=== PATIENT | male | born 1985 | race Caucasian/White ===

== ENCOUNTER 2021-06-01 16:59 | Inpatient (IN) | payer OTHER ==
[~2021-06-01] VITALS: Ht 170.2 cm; Wt 68.0 kg
[~2021-06-01 16:59] MED LIST: CIPRODEX OTIC7.5 ML AD
[2021-06-01 21:00] LABS: BASOPHIL 0 % (0-2); EOSINOPHIL 0 % (0-5); HCT 40.6 % (42.0-52.0); HGB 13.7 g/dl (13.2-18.0); LYMPHOCYTE 30.6 % (15-48); MCH 30.7 pg (25.0-31.0); MCHC 33.7 g/dL (32.0-36.0); NEUTROPHIL 60.5 % (41-80); NRBC 0; PLT 134 K/uL (150-400); RBC 4.46 M/uL (4.70-6.00); RDW 11.7 % (11.5-14.0); WBC 3.3 K/uL (4.0-10.5)
[2021-06-01 21:11] LABS: ALBUMIN 3.4 g/dL (3.4-5.0); BILIRUBIN - TOTAL 0.4 mg/dL (0.2-1.0); BUN/CREAT RATIO (CALC) 15.2 RATIO; CREATININE 2.1 mg/dL (0.67-1.17); GLOBULIN (CALCULATION) 3.6 g/dL; POTASSIUM 4.2 mmol/L (3.5-5.1)
[2021-06-01 21:15] LABS: LACTIC ACID 2.7 mmol/L (0.4-1.9)
[2021-06-01 21:31] LABS: INFLUENZA A NAA NEGATIVE (NEGATIVE)
[2021-06-01 21:47] LABS: CORONAVIRUS 2019 SARS-COV-2 POSITIVE (NEGATIVE)
[2021-06-02 12:36] LABS: HCT 35.8 % (42.0-52.0); HGB 12.1 g/dl (13.2-18.0); MCH 30.9 pg (25.0-31.0); MCHC 33.8 g/dL (32.0-36.0); MCV 91.3 fL (78.0-100.0); RBC 3.92 M/uL (4.70-6.00); RDW 11.8 % (11.5-14.0); WBC 2.9 K/uL (4.0-10.5)
[2021-06-02 13:42] LABS: BUN/CREAT RATIO (CALC) 17.2 RATIO; CREATININE 1.34 mg/dL (0.67-1.17); MAGNESIUM 2.3 mg/dL (1.8-2.4); PHOSPHORUS 3.2 mg/dL (2.6-4.7)
[2021-06-04 06:31] LABS: HCT 38.8 % (42.0-52.0); MCH 30.5 pg (25.0-31.0); MCHC 33.5 g/dL (32.0-36.0); MCV 91.1 fL (78.0-100.0); MPV 9.8 fL (6.0-9.5); RBC 4.26 M/uL (4.70-6.00); RDW 11.9 % (11.5-14.0)
[2021-06-04 06:32] LABS: WBC 7.1 K/uL (4.0-10.5)
[2021-06-04 06:49] LABS: BUN/CREAT RATIO (CALC) 19.3 RATIO; CREATININE 1.09 mg/dL (0.67-1.17); POTASSIUM 4.1 mmol/L (3.5-5.1)
[2021-06-05] MEDS ORDERED: DECADRON6 MG PO (14:24)
[2021-06-05] MEDS ORDERED: VENTOLIN HFA IN18 GM INH (14:24)
--- NOTE | 2021-06-05 15:55 | NUR ---
PATIENT LEFT WITHOUT DISCHARGE PAPERS, AND HOME OXYGEN. ELOPED FROM ROOM. IV HAD BEEN REMOVED. WAS ABLE TO CONTACT PATIENT, AND INSTRUCTED HIM TO USE OXYGEN PRN AT 2L NC, AND VERBALLY WENT OVER DISCHARGE PAPER WORK. PATIENT VERBALIZED UNDERSTANDING. INSTRUCTED PATIENT TO RETURN TO THE ER FOR ANY SOB, CHEST PAIN, DIZZINESS, FEVER, OR OTHER WORSENING SYMPTOMS.
== END 2021-06-05 15:00 | disposition home or self-care (01) | DRG 177 ==
LOC: FER 16:59 → FMS 06-03 12:19
PROVIDERS: Emergency Medicine; Nurse Practitioner Family; ADMIT Hospitalist
PROC: 8E0ZXY6 Isolation (ICD-10-PCS; principal; 2021-06-03)
PROC: XW033E5 Introduction of Remdesivir Anti-infective into Peripheral Vein, Percutaneous Approach, New Technology Group 5 (ICD-10-PCS; 2021-06-03)
DX: U07.1 COVID-19 (principal); J12.82 Pneumonia due to coronavirus disease 2019; J96.01 Acute respiratory failure with hypoxia; N17.9 Acute kidney failure, unspecified; Z88.2 Allergy status to sulfonamides
CPT/HCPCS: 36415; 36600; 71045; 71250; 80048; 80053; 82803; 83605; 83735; 84100; 84145; 85025; 85379; 87040; 93005; 94010; 94640; 94664; 94760; 96372; C9399; J0456; J1100; J1650; J1885; J2060; J2405; J2550; J7030; J7050; Q0169; U0002

== ENCOUNTER 2021-06-19 16:38 | Inpatient (IN) | payer OTHER ==
[~2021-06-19] VITALS: Ht 177.8 cm; Wt 60.0 kg
[~2021-06-19 16:38] MED LIST changes: +DECADRON6 MG PO; +VENTOLIN HFA IN18 GM INH
[2021-06-19 18:09] LABS: BASOPHIL 0.1 % (0-2); EOSINOPHIL 0 % (0-5); HCT 35.4 % (42.0-52.0); HGB 11.8 g/dl (13.2-18.0); LYMPHOCYTE 4.1 % (15-48); MCH 30.9 pg (25.0-31.0); MCHC 33.3 g/dL (32.0-36.0); MCV 92.7 fL (78.0-100.0); MONOCYTE 2.9 % (0-12); MPV 10.4 fL (6.0-9.5); NRBC 0; PLT 274 K/uL (150-400); RBC 3.82 M/uL (4.70-6.00); RDW 13.5 % (11.5-14.0); WBC 14.4 K/uL (4.0-10.5)
[2021-06-19 18:12] LABS: ALBUMIN 2.4 g/dL (3.4-5.0); BILIRUBIN - TOTAL 1.3 mg/dL (0.2-1.0); BUN/CREAT RATIO (CALC) 17.6 RATIO; CREATININE 1.19 mg/dL (0.67-1.17); GLOBULIN (CALCULATION) 5.2 g/dL; TOTAL PROTEIN 7.6 g/dL (6.4-8.2)
[2021-06-19 18:18] LABS: NEUTROPHIL 92.4 % (41-80)
[2021-06-19 19:05] LABS: LACTIC ACID 1.4 mmol/L (0.4-1.9)
--- NOTE | 2021-06-20 10:39 | NUR ---
OK TO USE CENTRAL LINE PT PRONED AT 1020
[2021-06-20 12:34] LABS: BUN/CREAT RATIO (CALC) 26.4 RATIO; CREATININE 1.21 mg/dL (0.67-1.17); POTASSIUM 3.8 mmol/L (3.5-5.1)
[2021-06-20 21:25] LABS: CREATININE 1.28 mg/dL (0.67-1.17); POTASSIUM 3.7 mmol/L (3.5-5.1)
[2021-06-21 06:00] LABS: BASOPHIL 0.1 % (0-2); EOSINOPHIL 0 % (0-5); HCT 26.3 % (42.0-52.0); HGB 8.4 g/dl (13.2-18.0); LYMPHOCYTE 11.4 % (15-48); MCH 30.7 pg (25.0-31.0); MCHC 31.9 g/dL (32.0-36.0); MONOCYTE 4.7 % (0-12); MPV 9.9 fL (6.0-9.5); NEUTROPHIL 83.2 % (41-80); NRBC 0; PLT 164 K/uL (150-400); RBC 2.74 M/uL (4.70-6.00); RDW 13.8 % (11.5-14.0); WBC 7.9 K/uL (4.0-10.5)
[2021-06-21 07:42] LABS: BUN/CREAT RATIO (CALC) 30.7 RATIO; CREATININE 1.14 mg/dL (0.67-1.17); POTASSIUM 4.4 mmol/L (3.5-5.1)
--- NOTE | 2021-06-21 15:13 | NUR ---
1000- PT TURN TO SUPINE POSITION. RT LISSY AT BEDSIDE, AT DOOR. PT TOLERATED WELL. O2 SAT REMAINS STABLE . 1110-TAKEN TO CT BY KEON Knapp RN AND CHRISSIE ORTIZ.
--- NOTE | 2021-06-22 03:20 | NUR ---
LATE ENTRY. 0130 PATIENT BECAME VERY RESTLESS AND AGITATED. MD Meenu URIOSTEGUI NOTIFIED DIPROVAN INCREASED TO 40 MCG/KG/MIN AND FENTANYL INCREASED TO 200MCG/HR, ATIVAN GIVEN AT 0145, VERSED 5MG PUSH GIVEN AT 0200, PATIENT STILL VERY AGITATED, MD NOTIFIED AGAIN AND INSTRUCTED TO INCREASE DIPROVAN AND FENTANYL TO MAX. AT 0210 VERSED DRIP STARTED AT 2MG/HR. TUBE FEED STOPPED, ORDER FOR KUB AND CHEST XRAY FOR LINE VERIFICATION. PENDING RESULTS. PATIENT RESTING WELL AT THIS TIME. WILL CONT TO MONITIOR. VERSED INCREASES TO 3MG/HR AT 0300
[2021-06-22 05:27] LABS: BUN/CREAT RATIO (CALC) 41.2 RATIO; CREATININE 0.97 mg/dL (0.67-1.17); POTASSIUM 4.9 mmol/L (3.5-5.1)
[2021-06-22 22:26] LABS: BILIRUBIN NEGATIVE (NEGATIVE); BLOOD TRACE-INTACT Ery/uL (NEGATIVE); CLARITY CLEAR (CLEAR); COLOR YELLOW (YELLOW); GLUCOSE (U) NORMAL (NORMAL); LEUKOCYTES NEGATIVE Leu/uL (NEGATIVE); NITRITE NEGATIVE (NEGATIVE); PROTEIN NEGATIVE (NEGATIVE); SPECIFIC GRAVITY 1.025 (1.001-1.030); UROBILINOGEN 0.2 mg/dL (0.2-1.0); pH 6.5 (5.0-9.0)
[2021-06-22 22:32] LABS: URINARY WBC RARE
[2021-06-23 04:57] LABS: BASOPHIL 0.2 % (0-2); EOSINOPHIL 0 % (0-5); HCT 33.1 % (42.0-52.0); HGB 10.7 g/dl (13.2-18.0); LYMPHOCYTE 8.4 % (15-48); MCH 30.7 pg (25.0-31.0); MCHC 32.3 g/dL (32.0-36.0); MCV 94.8 fL (78.0-100.0); MONOCYTE 2.8 % (0-12); MPV 10.3 fL (6.0-9.5); NRBC 0; PLT 244 K/uL (150-400); RBC 3.49 M/uL (4.70-6.00); RDW 13.3 % (11.5-14.0); WBC 9.8 K/uL (4.0-10.5)
[2021-06-23 05:19] LABS: BUN/CREAT RATIO (CALC) 40.5 RATIO; CREATININE 0.84 mg/dL (0.67-1.17); MAGNESIUM 2.3 mg/dL (1.8-2.4); POTASSIUM 4.4 mmol/L (3.5-5.1)
--- NOTE | 2021-06-23 14:52 | NUR ---
CALLED TO PATIENT ROOM AROUND 1200, PATIENT HAD SELF-EXTUBATED. PATIENT WAS FOUND BY OTHER RN WHO WENT INTO THE ROOM TO CHECK ON THE PATIENT. PATIENT WAS AWAKE, CUFF OF ET TUBE IN PATIENT MOUTH. MD TO BEDSIDE, WELL RESPIRATORY THERAPY. PATIENT PLACED ON OXYMIZER 15L, AND ATTEMPTED TO HAVE PATIENT ANSWER QUESTIONS. PATIENT WAS TALKING, AND RESPONDING TO QUESTIONS. SEDATION MEDICATIONS WERE ALL TURNED OFF AT THIS TIME. PATIENT WAS STABLE ON 15L OXYMIZER, PATIENT WAS ABLE TO COUGH AND PRODUCE SPUTUM, YAUNKER USED TO REMOVE SPUTUM. VITALS DURING THIS TIME: BP 113/75, HR 86, O2 SAT 95% ON 15L OXYMIZER, RR 35. WILL CONTINUE TO MONITOR PATIENT.
--- NOTE | 2021-06-23 15:19 | NUR ---
AT 1235, CALED TO PATIENT ROOM DUE TO PATIENT DE-SATTING. PATIENT HAD REMOVED O2 MASK @15L AND PATIENTS O2 SAT WAS IN THE 60'S. PATIENT WAS PLACED BACK ON 15L MASK (OXYMIZER) PER RESPIRATORY THERAPY WHO WAS AT BEDISE. DR TY MATA TO THE BEDSIDE.
--- NOTE | 2021-06-23 15:31 | NUR ---
AT 1245 DR CRAWFORD MADE THE DECISION TO RE-INTUBATE THE PATIENT. PATIENT WAS STILL SPEAKING, WAS CONFUSED, BUT RESPONDED TO VOICE AND FOLLOWED COMMANDS APPROPRIATLEY. PATIENT WAS PREPPED FOR INTUBATION, 2 RN'S INCLUDING MYSELF, DR CRAWFORD, AND 2 RT'S AT THE BEDSIDE. KS-INTUBATION VITALS: BP 129/103, HR 89, O2 SAT 91% ON 15L MASK, RR 40. PATIENT SEDATED WITH 5MG IVP VERSED, 10MG IVP VECURONIUM, AND 20MG IVP ETOMIDATE. PATIENT INTUBATED AT 1245 WITH 7.5ET TUBE, 24 AT LIP, POSITIVE COLOR CHANGE ON CO2 DETECTOR IMMEDIALEY POST INTUBATION, AND BILATERAL BREATH SOUNDS EQUAL. PATIENTS VITALS POST INTUBATION: BP 153/106, HR 98, O2 SAT 98% ON SIMV, RATE 22, FIO2 70%, PEEP 5, TIDAL VOLUME 360. MD ORDERED TO PLACE PATIENT ON CONTINUOUS DIPRIVAN, VERSED AND FENTANYL GTT FOR SEDATION. ANOTHER 1T DOSE OF 5MG IVP VERSED GIVEN. WILL CONTINUE TO MONITOR
--- NOTE | 2021-06-23 22:45 | NUR ---
TORIN FROM [facility] CALLED TO CHECK ON PT. STATUS. STILL NO BED WILL CALL BACK TO CHECK ON STATUS. ER,RN
[2021-06-24 04:38] LABS: BASOPHIL 0.4 % (0-2); EOSINOPHIL 0 % (0-5); HCT 29.7 % (42.0-52.0); HGB 9.9 g/dl (13.2-18.0); LYMPHOCYTE 7.8 % (15-48); MCH 31.3 pg (25.0-31.0); MCHC 33.3 g/dL (32.0-36.0); MONOCYTE 3.4 % (0-12); MPV 10.4 fL (6.0-9.5); NEUTROPHIL 83.8 % (41-80); NRBC 0; PLT 253 K/uL (150-400); RBC 3.16 M/uL (4.70-6.00); RDW 13.5 % (11.5-14.0); WBC 9.8 K/uL (4.0-10.5)
[2021-06-24 05:03] LABS: BUN/CREAT RATIO (CALC) 35.8 RATIO; CREATININE 0.81 mg/dL (0.67-1.17); POTASSIUM 4.9 mmol/L (3.5-5.1)
[2021-06-25 03:28] LABS: BASOPHIL 0.4 % (0-2); EOSINOPHIL 0 % (0-5); HCT 31.4 % (42.0-52.0); HGB 10.4 g/dl (13.2-18.0); LYMPHOCYTE 7.3 % (15-48); MCH 31.1 pg (25.0-31.0); MCHC 33.1 g/dL (32.0-36.0); MONOCYTE 3.8 % (0-12); MPV 9.9 fL (6.0-9.5); NRBC 0; PLT 274 K/uL (150-400); RBC 3.34 M/uL (4.70-6.00); RDW 13.5 % (11.5-14.0); WBC 10.1 K/uL (4.0-10.5)
[2021-06-25 03:29] LABS: NEUTROPHIL 82.2 % (41-80)
[2021-06-25 04:00] LABS: BUN/CREAT RATIO (CALC) 32.9 RATIO; CREATININE 0.79 mg/dL (0.67-1.17); POTASSIUM 5.1 mmol/L (3.5-5.1)
--- NOTE | 2021-06-25 14:15 | NUR ---
PT BECAME VERY ANXIOUS. BREATHING VERY FAST OVER THE VENTILATOR AND BITING TUBE TO WHERE IT WAS OCCULDED. SEDATION INCREASED TO MAX RATES WITHOUT IMPROVEMENT. MD NOTIFIED AND ORDERED 2MG DILAUDID IVP. THIS TOOK A COUPLE MINUTES TO START TO WORK WHERE PT BEGAN TO LET UP ON TUBE. BITE BLOCK INSERTED AND PT WAS SUCTIONED DOWN TUBE WELL ORALLY. PT O2 SAT DROPPED TO 39 AT THE LOWEST. ONCE PT CALMED DOWN, HE WAS STILL BREATHING OVER THE VENTILATOR PRETTY FREQUENTLY. MD NOTIFIED AND 5MG GEODON IM GIVEN. MINIMAL IMPROVEMENT NOTED.
[2021-06-26 03:45] LABS: BASOPHIL 0.5 % (0-2); EOSINOPHIL 0 % (0-5); HGB 10.5 g/dl (13.2-18.0); LYMPHOCYTE 6.7 % (15-48); MCH 30.8 pg (25.0-31.0); MCHC 31.8 g/dL (32.0-36.0); MCV 96.8 fL (78.0-100.0); MPV 10.2 fL (6.0-9.5); NRBC 0; PLT 299 K/uL (150-400); RBC 3.41 M/uL (4.70-6.00); RDW 13.9 % (11.5-14.0); WBC 8.6 K/uL (4.0-10.5)
[2021-06-26 03:50] LABS: NEUTROPHIL 81.3 % (41-80)
[2021-06-26 04:08] LABS: BUN/CREAT RATIO (CALC) 36.1 RATIO; CREATININE 0.72 mg/dL (0.67-1.17); POTASSIUM 4.8 mmol/L (3.5-5.1)
--- NOTE | 2021-06-26 09:16 | NUR ---
Livia from access center call for update, still no beds available
[2021-06-27 04:57] LABS: BASOPHIL 0.5 % (0-2); EOSINOPHIL 0.3 % (0-5); HCT 31.9 % (42.0-52.0); HGB 10.4 g/dl (13.2-18.0); LYMPHOCYTE 18.2 % (15-48); MCH 31.1 pg (25.0-31.0); MCHC 32.6 g/dL (32.0-36.0); MCV 95.5 fL (78.0-100.0); MONOCYTE 8.4 % (0-12); MPV 10.1 fL (6.0-9.5); NRBC 0; PLT 311 K/uL (150-400); RBC 3.34 M/uL (4.70-6.00); RDW 14.2 % (11.5-14.0); WBC 8.7 K/uL (4.0-10.5)
[2021-06-27 04:59] LABS: NEUTROPHIL 63.9 % (41-80)
[2021-06-27 05:17] LABS: ALBUMIN 1.6 g/dL (3.4-5.0); BILIRUBIN - TOTAL 0.2 mg/dL (0.2-1.0); BUN/CREAT RATIO (CALC) 38.6 RATIO; CREATININE 0.7 mg/dL (0.67-1.17); GLOBULIN (CALCULATION) 3.5 g/dL; POTASSIUM 4.2 mmol/L (3.5-5.1); TOTAL PROTEIN 5.1 g/dL (6.4-8.2)
--- NOTE | 2021-06-27 08:18 | NUR ---
SEDATION VACTION 0750, AT 0810 STARTED CPAP TRIAL SALIMA AT 25MCG OR 11.9ML/HR
--- NOTE | 2021-06-27 10:53 | NUR ---
WEANED DIPRIVAN FROM 25MCG/KG/MIN AT 1020 TO 10MCG/KG/MIN. WEANED FENTANYL FROM 150MCG/HR TO 50MCG/HR. PLANNING TO EXTUBATE. RT AT BEDSIDE. PATIENT WAKING UP, ABLE TO OPEN EYES TO VOICE, AND FOLLOW COMMANDS WHEN PROMPTED. PATIENT ABLE TO SHAKE HIS HEAD "YES" AND "NO" TO QUESTIONS, AND SQUEEZED MY HAND WHEN PROMPTED. AT 1030, ET TUBE AND OG TUBE REMOVED. PATIENT PLACED ON 15L OXYMIZER, ABLE TO COUGH AND PRODUCE THICK YELLOW SPUTUM, SUCTIONED WITH YAUNKER. PATIENT STABLE AT THIS TIME. BP 144/96, HR 89, O2 SAT 99%, RR 20. WOLF, PRIMARY RN GIVEN REPORT
[2021-06-28 06:21] LABS: BASOPHIL 0.3 % (0-2); EOSINOPHIL 0.6 % (0-5); HCT 30.9 % (42.0-52.0); HGB 10.4 g/dl (13.2-18.0); LYMPHOCYTE 11.5 % (15-48); MCH 31.2 pg (25.0-31.0); MCHC 33.7 g/dL (32.0-36.0); MCV 92.8 fL (78.0-100.0); MONOCYTE 5.8 % (0-12); MPV 10.1 fL (6.0-9.5); NEUTROPHIL 78.2 % (41-80); NRBC 0; PLT 351 K/uL (150-400); RBC 3.33 M/uL (4.70-6.00); RDW 14.2 % (11.5-14.0); WBC 10.8 K/uL (4.0-10.5)
[2021-06-28 07:17] LABS: IRON % SATURATION 28.4 %SAT (20-50)
[2021-06-28 07:22] LABS: ALBUMIN 1.9 g/dL (3.4-5.0); BILIRUBIN - TOTAL 0.5 mg/dL (0.2-1.0); BUN/CREAT RATIO (CALC) 38.2 RATIO; CREATININE 0.76 mg/dL (0.67-1.17); GLOBULIN (CALCULATION) 3.7 g/dL; PHOSPHORUS 3.9 mg/dL (2.6-4.7); POTASSIUM 3.5 mmol/L (3.5-5.1); TOTAL PROTEIN 5.6 g/dL (6.4-8.2)
[2021-06-28 08:05] LABS: MAGNESIUM 2.2 mg/dL (1.8-2.4)
[2021-06-29 04:20] LABS: BASOPHIL 0.1 % (0-2); EOSINOPHIL 0.2 % (0-5); HCT 33.7 % (42.0-52.0); HGB 11.4 g/dl (13.2-18.0); MCH 30.9 pg (25.0-31.0); MCHC 33.8 g/dL (32.0-36.0); MCV 91.3 fL (78.0-100.0); MONOCYTE 8.4 % (0-12); MPV 9.9 fL (6.0-9.5); NEUTROPHIL 77.6 % (41-80); NRBC 0; PLT 418 K/uL (150-400); RBC 3.69 M/uL (4.70-6.00); RDW 14.6 % (11.5-14.0); WBC 12.7 K/uL (4.0-10.5)
[2021-06-29 04:32] LABS: ALBUMIN 2.4 g/dL (3.4-5.0); BILIRUBIN - TOTAL 0.6 mg/dL (0.2-1.0); BUN/CREAT RATIO (CALC) 33.3 RATIO; CREATININE 0.78 mg/dL (0.67-1.17); GLOBULIN (CALCULATION) 4.4 g/dL; MAGNESIUM 2.4 mg/dL (1.8-2.4); PHOSPHORUS 3.8 mg/dL (2.6-4.7); TOTAL PROTEIN 6.8 g/dL (6.4-8.2)
[2021-06-30 06:11] LABS: BASOPHIL 0.1 % (0-2); EOSINOPHIL 1.7 % (0-5); HCT 30.3 % (42.0-52.0); HGB 10.3 g/dl (13.2-18.0); LYMPHOCYTE 15.4 % (15-48); MCH 31.6 pg (25.0-31.0); MCV 92.9 fL (78.0-100.0); MONOCYTE 8.6 % (0-12); MPV 9.9 fL (6.0-9.5); NEUTROPHIL 73.5 % (41-80); NRBC 0; PLT 372 K/uL (150-400); RBC 3.26 M/uL (4.70-6.00); RDW 14.6 % (11.5-14.0); WBC 12.7 K/uL (4.0-10.5)
[2021-06-30 06:49] LABS: ALBUMIN 2.5 g/dL (3.4-5.0); BILIRUBIN - TOTAL 0.7 mg/dL (0.2-1.0); BUN/CREAT RATIO (CALC) 32.5 RATIO; CREATININE 0.77 mg/dL (0.67-1.17); GLOBULIN (CALCULATION) 3.7 g/dL; MAGNESIUM 2.4 mg/dL (1.8-2.4); POTASSIUM 3.6 mmol/L (3.5-5.1); TOTAL PROTEIN 6.2 g/dL (6.4-8.2)
[2021-07-02 05:29] LABS: BASOPHIL 0.2 % (0-2); EOSINOPHIL 1.5 % (0-5); HCT 27.3 % (42.0-52.0); HGB 9.1 g/dl (13.2-18.0); LYMPHOCYTE 19.7 % (15-48); MCH 31.4 pg (25.0-31.0); MCHC 33.3 g/dL (32.0-36.0); MCV 94.1 fL (78.0-100.0); MONOCYTE 7.8 % (0-12); MPV 10.1 fL (6.0-9.5); NEUTROPHIL 69.9 % (41-80); NRBC 0; PLT 367 K/uL (150-400); RDW 15.1 % (11.5-14.0); WBC 16.3 K/uL (4.0-10.5)
[2021-07-02 05:56] LABS: BUN/CREAT RATIO (CALC) 58.3 RATIO; CREATININE 0.72 mg/dL (0.67-1.17); POTASSIUM 4.2 mmol/L (3.5-5.1)
[2021-07-02 17:48] LABS: BILIRUBIN NEGATIVE (NEGATIVE); BLOOD NEGATIVE Ery/uL (NEGATIVE); CLARITY CLEAR (CLEAR); COLOR YELLOW (YELLOW); GLUCOSE (U) NORMAL (NORMAL); LEUKOCYTES NEGATIVE Leu/uL (NEGATIVE); NITRITE NEGATIVE (NEGATIVE); PROTEIN NEGATIVE (NEGATIVE); SPECIFIC GRAVITY >=1.030 (1.001-1.030); UROBILINOGEN 0.2 mg/dL (0.2-1.0); pH 5.5 (5.0-9.0)
[2021-07-02 17:55] LABS: SQUAMOUS EPITHELIAL CELLS RARE; URINARY RBC RARE
[2021-07-03 05:57] LABS: BUN/CREAT RATIO (CALC) 66.7 RATIO; CREATININE 0.87 mg/dL (0.67-1.17); MAGNESIUM 2.2 mg/dL (1.8-2.4); POTASSIUM 4.2 mmol/L (3.5-5.1)
[2021-07-03 06:17] LABS: BASOPHIL 0.2 % (0-2); EOSINOPHIL 0.7 % (0-5); HCT 17.1 % (42.0-52.0); LYMPHOCYTE 21.4 % (15-48); MCH 32.6 pg (25.0-31.0); MCHC 33.9 g/dL (32.0-36.0); MCV 96.1 fL (78.0-100.0); MONOCYTE 7.7 % (0-12); MPV 10.7 fL (6.0-9.5); NRBC 0; PLT 292 K/uL (150-400); RBC 1.78 M/uL (4.70-6.00); RDW 15.9 % (11.5-14.0); WBC 26.3 K/uL (4.0-10.5)
[2021-07-03 06:21] LABS: HGB 5.8 g/dl (13.2-18.0)
--- NOTE | 2021-07-03 11:09 | NUR ---
PATIENT TAKEN TO CT VIA BED, ON ADJUNCT POLITICAL SCIENCE INSTRUCTOR, WITH 2ND UNIT OF BLOOD TRANSFUSING AND SANDOSTATIN GTT INFUSING. PATIENT TOLERATED TRANSPORT TO CT WELL. OR PROGRAMS ASSISTANT TRANSPORTED PATIENT FROM CT TO OR FOR EGD PROCEDURE WITH DR ELISE. PATIENT TAKE DIRECTLY BACK TO MAIN OR ROOM. VITALS AT TIME OF TRANSPORT FROM CT: BP: 115/58 (78), HR 93, RR 20, O2 SAT 100% ON 50% VENTI MASK
[2021-07-03 12:49] LABS: HCT 26.8 % (42.0-52.0); HGB 9.4 g/dL (13.2-18.0)
[2021-07-03 18:39] LABS: HCT 25.3 % (42.0-52.0); HGB 9.1 g/dL (13.2-18.0)
[2021-07-04 01:13] LABS: HCT 22.8 % (42.0-52.0); HGB 8.1 g/dL (13.2-18.0)
[2021-07-04 06:20] LABS: BASOPHIL 0.3 % (0-2); EOSINOPHIL 0.5 % (0-5); HCT 22.6 % (42.0-52.0); LYMPHOCYTE 18.6 % (15-48); MCHC 34.5 g/dL (32.0-36.0); MONOCYTE 5.9 % (0-12); MPV 10.6 fL (6.0-9.5); NRBC 0.4; PLT 208 K/uL (150-400); RBC 2.52 M/uL (4.70-6.00); RDW 15.6 % (11.5-14.0); WBC 15.7 K/uL (4.0-10.5)
[2021-07-04 06:22] LABS: HGB 7.8 g/dl (13.2-18.0); MCV 89.7 fL (78.0-100.0)
[2021-07-04 06:51] LABS: ALBUMIN 2.5 g/dL (3.4-5.0); BILIRUBIN - TOTAL 0.7 mg/dL (0.2-1.0); CREATININE 0.8 mg/dL (0.67-1.17); GLOBULIN (CALCULATION) 2.5 g/dL; MAGNESIUM 2.1 mg/dL (1.8-2.4); PHOSPHORUS 3.8 mg/dL (2.6-4.7)
[2021-07-04 13:18] LABS: HCT 21.9 % (42.0-52.0); HGB 7.7 g/dL (13.2-18.0)
[2021-07-04 18:12] LABS: HCT 23.1 % (42.0-52.0); HGB 8.1 g/dL (13.2-18.0)
[2021-07-05 02:08] LABS: HCT 21.9 % (42.0-52.0); HGB 7.5 g/dL (13.2-18.0)
[2021-07-05 08:23] LABS: BASOPHIL 0.2 % (0-2); EOSINOPHIL 1.3 % (0-5); HCT 22.5 % (42.0-52.0); HGB 7.6 g/dl (13.2-18.0); LYMPHOCYTE 19.4 % (15-48); MCH 31.9 pg (25.0-31.0); MCHC 33.8 g/dL (32.0-36.0); MONOCYTE 5.1 % (0-12); MPV 10.1 fL (6.0-9.5); NEUTROPHIL 72.7 % (41-80); NRBC 0.2; PLT 207 K/uL (150-400); RBC 2.38 M/uL (4.70-6.00); RDW 16.8 % (11.5-14.0); WBC 11.2 K/uL (4.0-10.5)
[2021-07-05 08:26] LABS: MCV 94.5 fL (78.0-100.0)
[2021-07-05 09:00] LABS: BUN/CREAT RATIO (CALC) 28.6 RATIO; CREATININE 0.77 mg/dL (0.67-1.17); POTASSIUM 3.4 mmol/L (3.5-5.1)
[2021-07-05 19:07] LABS: HCT 28.2 % (42.0-52.0); HGB 9.7 g/dL (13.2-18.0)
[2021-07-06 06:27] LABS: BASOPHIL 0.2 % (0-2); EOSINOPHIL 1.6 % (0-5); HCT 27.2 % (42.0-52.0); HGB 9.2 g/dl (13.2-18.0); LYMPHOCYTE 21.5 % (15-48); MCH 31.2 pg (25.0-31.0); MCHC 33.8 g/dL (32.0-36.0); MCV 92.2 fL (78.0-100.0); MONOCYTE 5.5 % (0-12); MPV 10.5 fL (6.0-9.5); NEUTROPHIL 70.1 % (41-80); NRBC 0; PLT 207 K/uL (150-400); RBC 2.95 M/uL (4.70-6.00); WBC 9.4 K/uL (4.0-10.5)
[2021-07-06 06:43] LABS: BUN/CREAT RATIO (CALC) 28.9 RATIO; CREATININE 0.76 mg/dL (0.67-1.17); POTASSIUM 3.3 mmol/L (3.5-5.1)
[2021-07-06 16:04] LABS: HCT 30.1 % (42.0-52.0); HGB 10.3 g/dL (13.2-18.0)
--- NOTE | 2021-07-06 16:26 | NUR ---
07/06/21 A referral has been sent to [facility] per patient choice.
[2021-07-07 05:58] LABS: BASOPHIL 0.3 % (0-2); EOSINOPHIL 2.4 % (0-5); HCT 29.8 % (42.0-52.0); LYMPHOCYTE 17.6 % (15-48); MCH 31.4 pg (25.0-31.0); MCHC 33.6 g/dL (32.0-36.0); MCV 93.7 fL (78.0-100.0); MONOCYTE 6.2 % (0-12); MPV 10.1 fL (6.0-9.5); NEUTROPHIL 72.7 % (41-80); NRBC 0; PLT 216 K/uL (150-400); RBC 3.18 M/uL (4.70-6.00); RDW 19.2 % (11.5-14.0); WBC 8.7 K/uL (4.0-10.5)
[2021-07-08 06:01] LABS: BASOPHIL 0.4 % (0-2); EOSINOPHIL 3.4 % (0-5); HCT 33.5 % (42.0-52.0); HGB 11.2 g/dl (13.2-18.0); MCH 31.4 pg (25.0-31.0); MCHC 33.4 g/dL (32.0-36.0); MCV 93.8 fL (78.0-100.0); MONOCYTE 5.1 % (0-12); MPV 10.2 fL (6.0-9.5); NEUTROPHIL 72.6 % (41-80); NRBC 0; PLT 223 K/uL (150-400); RBC 3.57 M/uL (4.70-6.00); RDW 19.2 % (11.5-14.0); WBC 9.7 K/uL (4.0-10.5)
[2021-07-09 05:35] LABS: BASOPHIL 0.5 % (0-2); EOSINOPHIL 5.7 % (0-5); HCT 34.4 % (42.0-52.0); HGB 11.3 g/dl (13.2-18.0); LYMPHOCYTE 21.8 % (15-48); MCHC 32.8 g/dL (32.0-36.0); MCV 94.2 fL (78.0-100.0); MONOCYTE 6.2 % (0-12); MPV 10.2 fL (6.0-9.5); NEUTROPHIL 65.2 % (41-80); NRBC 0; PLT 225 K/uL (150-400); RBC 3.65 M/uL (4.70-6.00); RDW 19.2 % (11.5-14.0); WBC 8.2 K/uL (4.0-10.5)
[2021-07-09 05:52] LABS: BUN/CREAT RATIO (CALC) 30.3 RATIO; CREATININE 0.89 mg/dL (0.67-1.17); POTASSIUM 4.1 mmol/L (3.5-5.1)
[2021-07-10 06:30] LABS: BASOPHIL 0.6 % (0-2); EOSINOPHIL 7.5 % (0-5); HCT 33.6 % (42.0-52.0); HGB 11.1 g/dl (13.2-18.0); LYMPHOCYTE 26.3 % (15-48); MCH 31.6 pg (25.0-31.0); MCV 95.7 fL (78.0-100.0); MONOCYTE 7.4 % (0-12); MPV 10.3 fL (6.0-9.5); NEUTROPHIL 57.5 % (41-80); NRBC 0; PLT 209 K/uL (150-400); RBC 3.51 M/uL (4.70-6.00); RDW 18.6 % (11.5-14.0); WBC 7.1 K/uL (4.0-10.5)
[2021-07-10] MEDS ORDERED: TRELEGY ELLIPT1 EACH INH (12:05)
[2021-07-10] MEDS ORDERED: VENTOLIN HFA IN18 GM INH ×2 (12:06→12:08)
[2021-07-10] MEDS ORDERED: PROTONIX 40MG T40 MG PO (12:08)
[2021-07-10] MEDS ORDERED: ELIQUIS5 MG PO (12:08)
[2021-07-10 13:05] LABS: BASOPHIL 0.2 % (0-2); EOSINOPHIL 0.9 % (0-5); HCT 37.6 % (42.0-52.0); HGB 12.7 g/dl (13.2-18.0); LYMPHOCYTE 40.3 % (15-48); MCH 32.6 pg (25.0-31.0); MCHC 33.8 g/dL (32.0-36.0); MCV 96.4 fL (78.0-100.0); MONOCYTE 4.7 % (0-12); MPV 9.9 fL (6.0-9.5); NEUTROPHIL 53.3 % (41-80); NRBC 0; PLT 251 K/uL (150-400); RDW 18.5 % (11.5-14.0); WBC 9.4 K/uL (4.0-10.5)
[2021-07-10 13:25] LABS: ALBUMIN 3.2 g/dL (3.4-5.0); BILIRUBIN - TOTAL 0.4 mg/dL (0.2-1.0); BUN/CREAT RATIO (CALC) 29.8 RATIO; CREATININE 0.84 mg/dL (0.67-1.17); GLOBULIN (CALCULATION) 3.3 g/dL; MAGNESIUM 2.4 mg/dL (1.8-2.4); POTASSIUM 3.5 mmol/L (3.5-5.1); TOTAL PROTEIN 6.5 g/dL (6.4-8.2)
--- NOTE | 2021-07-10 13:44 | NUR ---
PATIENT'S MOTHER ASSISTED PATIENT TO BATHROOM WHERE SHE CALLED OUT FOR ASSISTANCE SAYING "SOMETHING ISN'T RIGHT." ON ASSESSMENT, PATIENT WAS PALE AND DIAPHORETIC STATING "I'M HAVING A HEART ATTACK." [facility] WAS CALLED OVERHEAD AND DR CRAWFORD CAME TO BEDSIDE. PATIENT WAS PLACED ON OXYGEN PER NRB. PATIENT DENIED ANY CHEST PAIN, ONLY STATING THAT HE WAS "VERY TIRED." PATIENT ALSO WAS UNABLE TO MOVE RIGHT UPPER EXTREMITY AND WAS FLACCID ON ASSESSMENT. TURN SEWER DID SHOW SOME CHANGES WITH SUSPECTED ST ELEVATION. EKG WAS OBTAINED THAT CONFIRMED STEMI. PATIENT SENT FOR CT OF HEAD AND CHEST.
--- NOTE | 2021-07-10 14:39 | NUR ---
[facility] TEAM CALLED AT 1240, UPON ARRIVAL TO THE ROOM, PATIENT FOUND IN BATHROOM WITH HIS MOTHER, PALE, DIAPHORETIC AND WITHOUT MOVEMENT OF HIS RIGHT UPPER ARM. PATIENT UNABLE TO HOLD HIMSELF UP ON THE TOILET. PATIENT PLACED ON OXYGEN VIA NASAL CANULA AND WITH THE ASSISTANCE OF SEVERAL OTHER STAFF MEMEBERS, PATIENT PLACED IN WHEELCHAIR. PATIENT URGENTLY TAKEN TO HIS BED, FIRST SET OF VITALS FOLLOWS: TIME-1243 BP: 142/97, HR 121, SAO2 55% PER MONITOR, PATIENT PLACED ON 100% NRB--UNABLE TO GET A GOOD PLETH WITH READING, FINGERS PALE AND COLD TO TOUCH. EKG OBTAINED, MD AND RT BOTH AT BEDSIDE, EKG SHOWED CONCERNS FOR ST ELEVATION. IV ACCESS OBTAINED AT 1250- #20GAUGE IN LEFT AC. 500ML NORMAL SALINE BOLUS STARTED PER LULU ORTIZ AND VERBAL ORDER BY DR. CRAWFORD. FASTING BLOOD GLUCOSE OBTAINED AT 1243, BG WAS 108. VITALS AT 1255 FOLLOWS: BP 110/71, HR 121, SAO2 100% ON 100% NRB MASK. DR CRAWFORD ON THE PHONE WITH [facility] STEMI TEAM AT 1300, PATIENT ACCEPTED FOR TRANSFER TO [facility]. [facility] CALLED FOR TRANSPORT AT 1254 POST EKG THAT WAS CONCERNING FOR STEMI PER DR CRAWFORD. PATIENT TRANSPORTED TO CT HEAD AND CTA PE PROTOCOL, PATIENT TOLERATED TRANSPORT WELL. PATIENT BACK TO TCU TO AWAIT ARRIVAL OF [facility] FOR TRANSPORT TO [facility]. [facility] ARRIVED AT 1400, PATIENT TAKEN OUT OF ROOM AT 1411. DIE CAST OPERATOR PROTOCOL FORM COMPLETED AND PLACED IN CHART.
--- NOTE | 2021-07-10 15:28 | NUR ---
07/10/21 Plans were in progress for discharge. [facility] has not received authorization nor do they have a bed available today. [facility] was planning to admit from home when auth was received from insurance and a bed became available. - A portable tank was ordered from [employer]. An outpatient PT appointment was scheduled for 07/13 at [facility] Outpatient [facility]. - Mr. Baltazar experienced a heart attack and was stat flighted to [facility]. - All referral sources were informed.
== END 2021-07-10 13:50 | disposition other institution (70) | DRG 207 ==
LOC: FER 16:38 → FICU 06-20 19:17 → FMS 06-20 19:17 → FICU 06-20 21:29 → FMS 07-02 08:41 → FICU 07-03 09:52 → FTCU 07-06 23:47
PROVIDERS: Emergency Medicine; Internal Medicine; ADMIT Hospitalist
PROC: 0BH17EZ Insertion of Endotracheal Airway into Trachea, Via Natural or Artificial Opening (ICD-10-PCS; principal; 2021-06-20)
PROC: 5A1955Z Respiratory Ventilation, Greater than 96 Consecutive Hours (ICD-10-PCS; 2021-06-20)
PROC: 05H533Z Insertion of Infusion Device into Right Subclavian Vein, Percutaneous Approach (ICD-10-PCS; 2021-06-20)
PROC: 8E0ZXY6 Isolation (ICD-10-PCS; 2021-06-20)
PROC: XW033E5 Introduction of Remdesivir Anti-infective into Peripheral Vein, Percutaneous Approach, New Technology Group 5 (ICD-10-PCS; 2021-06-20)
PROC: 3E0333Z Introduction of Anti-inflammatory into Peripheral Vein, Percutaneous Approach (ICD-10-PCS; 2021-06-20)
PROC: B24BZZZ Ultrasonography of Heart with Aorta (ICD-10-PCS; 2021-06-22)
PROC: 0DJ08ZZ Inspection of Upper Intestinal Tract, Via Natural or Artificial Opening Endoscopic (ICD-10-PCS; 2021-07-03)
PROC: 30233N1 Transfusion of Nonautologous Red Blood Cells into Peripheral Vein, Percutaneous Approach (ICD-10-PCS; 2021-07-03)
PROC: 30233N1 Transfusion of Nonautologous Red Blood Cells into Peripheral Vein, Percutaneous Approach (ICD-10-PCS; 2021-07-05)
DX: U07.1 COVID-19 (principal); I26.99 Other pulmonary embolism without acute cor pulmonale; K29.71 Gastritis, unspecified, with bleeding; I21.4 Non-ST elevation (NSTEMI) myocardial infarction; J96.01 Acute respiratory failure with hypoxia; J12.82 Pneumonia due to coronavirus disease 2019; J15.9 Unspecified bacterial pneumonia; D62 Acute posthemorrhagic anemia; I82.409 Acute embolism and thrombosis of unspecified deep veins of unspecified lower extremity; N17.9 Acute kidney failure, unspecified; Z88.2 Allergy status to sulfonamides; Z79.899 Other long term (current) drug therapy; Z81.2 Family history of tobacco abuse and dependence; F11.29 Opioid dependence with unspecified opioid-induced disorder; J98.2 Interstitial emphysema; Z78.1 Physical restraint status
CPT/HCPCS: 36415; 36430; 36600; 70450; 71045; 71250; 71275; 74018; 80048; 80053; 80202; 81001; 82607; 82728; 82746; 82803; 82962; 83540; 83550; 83605; 83735; 83880; 84100; 84145; 84478; 84484; 85014; 85018; 85025; 85379; 85730; 86141; 86850; 86900; 86901; 86922; 87040; 93005; 93970; 94002; 94640; 94760; 94762; 96365; 96375; 97110; 97162; 97166; 97530; 97530-GP; 97535; C9113; C9399; J0171; J0692; J1100; J1170; J1644; J1650; J2060; J2250; J2354; J2405; J2543; J2550; J2704; J2916; J3010; J3370; J3480; J3486; J7030; J7040; J7050; J7060; J7120; J8540; P9016; Q9967; U0002